=== PATIENT | female | born 1950 | race Caucasian/White ===

== ENCOUNTER 2020-12-28 10:47 | Inpatient (IN) | payer MEDICARE ==
[~2020-12-28] VITALS: Ht 160 cm; Wt 54.9 kg
[2020-12-28 11:44] LABS: HEMOGLOBIN 12.3 gm/dl (12.3-15.3); RED BLOOD COUNT 4.24 M/UL (4.00-5.10)
[2020-12-28 12:08] LABS: BUN/CREATININE RATIO 32 (0-10)
[2020-12-29 05:13] LABS: HEMOGLOBIN 11.1 gm/dl (12.3-15.3); RED BLOOD COUNT 3.81 M/UL (4.00-5.10); WHITE BLOOD COUNT 9.3 K/UL (4.5-11.0)
[2020-12-29 05:34] LABS: BUN/CREATININE RATIO 30 (0-10)
[2020-12-30 05:50] LABS: HEMOGLOBIN 11.3 gm/dl (12.3-15.3); RED BLOOD COUNT 3.74 M/UL (4.00-5.10)
[2020-12-30 05:55] LABS: WHITE BLOOD COUNT 19.4 K/UL (4.5-11.0)
[2020-12-30 06:04] LABS: BUN/CREATININE RATIO 30 (0-10)
[2020-12-31 03:20] LABS: HEMOGLOBIN 11.3 gm/dl (12.3-15.3); RED BLOOD COUNT 3.77 M/UL (4.00-5.10); WHITE BLOOD COUNT 15.3 K/UL (4.5-11.0)
[2020-12-31 04:04] LABS: BUN/CREATININE RATIO 38 (0-10)
[2021-01-01 02:51] LABS: HEMOGLOBIN 11.3 gm/dl (12.3-15.3); RED BLOOD COUNT 3.73 M/UL (4.00-5.10); WHITE BLOOD COUNT 13.9 K/UL (4.5-11.0)
[2021-01-01 03:15] LABS: BUN/CREATININE RATIO 35 (0-10)
[2021-01-02 05:46] LABS: RED BLOOD COUNT 4.04 M/UL (4.00-5.10); WHITE BLOOD COUNT 11.1 K/UL (4.5-11.0)
[2021-01-02 06:26] LABS: BUN/CREATININE RATIO 24 (0-10)
[2021-01-02 14:25] LABS: BODY FLUID SOURCE PLEURAL; MONONUCLEAR CELLS 94 (75-100); POLYMORPHONUCLEAR % 6 (0-25); RBC (AUTOMATED) 400 (0-100000); WBC (AUTOMATED) 197 (0-500)
[2021-01-02 14:26] LABS: LDH, BODY FLUID 88 U/L; TOTAL PROTEIN, BODY FLUID 1.5 gm/dL
[2021-01-03 03:03] LABS: HEMOGLOBIN 12.7 gm/dl (12.3-15.3); RED BLOOD COUNT 4.29 M/UL (4.00-5.10); WHITE BLOOD COUNT 12.6 K/UL (4.5-11.0)
[2021-01-03 03:32] LABS: BUN/CREATININE RATIO 27 (0-10)
[2021-01-04 04:00] LABS: HEMOGLOBIN 12.7 gm/dl (12.3-15.3); RED BLOOD COUNT 4.21 M/UL (4.00-5.10); WHITE BLOOD COUNT 13.2 K/UL (4.5-11.0)
[2021-01-04 04:26] LABS: BUN/CREATININE RATIO 26 (0-10)
[2021-01-05 03:11] LABS: HEMOGLOBIN 13.6 gm/dl (12.3-15.3); RED BLOOD COUNT 4.5 M/UL (4.00-5.10); WHITE BLOOD COUNT 15.4 K/UL (4.5-11.0)
[2021-01-05 03:53] LABS: BUN/CREATININE RATIO 28 (0-10)
--- NOTE | 2021-01-05 14:45 | NUR ---
PT ON ROOM AIR 02 88%
[2021-01-05 15:11] LABS: ORGANISM ID Not indicated. (.); SPECIMEN SOURCE Urine (.); STREPTOCOCCUS PNEUMONIAE AG Negative (Negative)
[2021-01-06 03:19] LABS: HEMOGLOBIN 13.5 gm/dl (12.3-15.3); RED BLOOD COUNT 4.5 M/UL (4.00-5.10); WHITE BLOOD COUNT 15.3 K/UL (4.5-11.0)
[2021-01-06 03:50] LABS: BUN/CREATININE RATIO 31 (0-10)
[2021-01-06] MEDS ORDERED: FUROSEMIDE40 MG PO (10:32)
[2021-01-06] MEDS ORDERED: LOPRESSOR 50 MG50 MG PO (10:32)
[2021-01-06] MEDS ORDERED: NICOTINE PATCH1 EAC1 TD (10:32)
[2021-01-06] MEDS ORDERED: DILTIAZEM 24HR240 M1 PO (10:32)
[2021-01-06] MEDS ORDERED: ASPIRIN EC81 MG PO (10:32)
[2021-01-06] MEDS ORDERED: ELIQUIS 5 MG TAB5 MG PO (10:32)
[2021-01-06] MEDS ORDERED: IPRAT-ALBUT 0.5-3 ML NEB (10:32)
== END 2021-01-06 13:58 | disposition home or self-care (01) | DRG 291 ==
LOC: ER1 10:47 → CDU 14:14 → PROG CARE 14:14
PROVIDERS: Internal Medicine; Internal Medicine Infectious Disease; Physician Assistant; Physician Assistant Medical; ADMIT Internal Medicine
PROC: B24BZZ4 Ultrasonography of Heart with Aorta, Transesophageal (ICD-10-PCS; principal; 2020-12-29)
PROC: 8E0ZXY6 Isolation (ICD-10-PCS; 2020-12-29)
PROC: 3E0333Z Introduction of Anti-inflammatory into Peripheral Vein, Percutaneous Approach (ICD-10-PCS; 2021-01-01)
PROC: 0W9B3ZX Drainage of Left Pleural Cavity, Percutaneous Approach, Diagnostic (ICD-10-PCS; 2021-01-02)
DX: I11.0 Hypertensive heart disease with heart failure (principal); J96.01 Acute respiratory failure with hypoxia; U07.1 COVID-19; J98.11 Atelectasis; J90 Pleural effusion, not elsewhere classified; I48.91 Unspecified atrial fibrillation; I50.33 Acute on chronic diastolic (congestive) heart failure; J44.9 Chronic obstructive pulmonary disease, unspecified; I45.81 Long QT syndrome; G89.29 Other chronic pain; F17.210 Nicotine dependence, cigarettes, uncomplicated; R73.03 Prediabetes; G47.00 Insomnia, unspecified; I08.1 Rheumatic disorders of both mitral and tricuspid valves; I27.20 Pulmonary hypertension, unspecified; Z79.01 Long term (current) use of anticoagulants; Z79.82 Long term (current) use of aspirin; Z90.49 Acquired absence of other specified parts of digestive tract; Z86.73 Personal history of transient ischemic attack (TIA), and cerebral infarction without residual deficits; Z82.3 Family history of stroke; Z82.49 Family history of ischemic heart disease and other diseases of the circulatory system; Z83.3 Family history of diabetes mellitus; Z98.51 Tubal ligation status; Z71.6 Tobacco abuse counseling
CPT/HCPCS: ECHO; 36415; 36600; 71045; 71046; 80048; 80053; 81001; 82550; 82553; 82803; 82945; 82962; 83036; 83615; 83735; 83874; 83880; 83986; 84132; 84157; 84439; 84443; 84484; 85025; 85027; 85610; 85730; 86140; 87040; 87070; 87205; 87278; 87899; 89051; 93005; 93306; 94640; 94760; 96374; 99285; J0696; J1650; J1940; J1956; J2543; J2930; J3475; Q9967; U0002